=== PATIENT | male | born 1955 | race Caucasian/White ===

== ENCOUNTER 2017-06-08 01:43 | Inpatient (IN) | payer OTHER ==
--- NOTE | 2017-06-08 01:52 | PDOC ---
History of Present Illness - General Chief Complaint: Pain Stated Complaint: ABDOMINAL PAIN - History of Present Illness Initial Comments: 06/08/17 02:23 61-year-old M history of mood disorder presents with 4 weeks of epigastric pain that became suddenly worse tonight. The patient reports 2 hours prior to arrival he was awoken by 10 out of 10 sharp pain in his epigastric area. Associated with the pain was severe nausea at which point he ran to the bathroom and began to have some dry heaving, and felt as though he was going to pass out. Did not lose consiousness. This prompted him to present to the ED. He spoke with his primary doctor Dr. Arnold about this pain yesterday. Dr. Arnold recommended that he take Prilosec and Gas-X which he tried but it did not help. He has attempted to change his diet over the last few weeks to eat more healthy but that has not helped. He does not know that the pain gets worse before, after, or during eating. Had a normal bowel movement earlier today. Denies any chest pain or shortness of breath. Denies any fevers, chills. Had a history of an abdominal hernia repair in the epigastric area 10 years ago. Does not note any masses when his pain comes on. Denies dark or blood stools. Denies NSAID use. Denies recent unintentional weight loss. Meds: lexapro Allergies: PCN Social: no smoking, drug use, etoh use 1-2 times per week PMD: Dr. Arnold in [place] Past History - Past Medical History Allergies/Adverse Reactions: Allergies Allergy/AdvReac Type Severity Reaction Status Date / Time Penicillins Allergy Verified 03/11/13 07:43 Home Medications: Ambulatory Orders Escitalopram Oxalate [Lexapro -] 20 mg PO DAILY 03/11/13 - Psycho/Social/Smoking Cessation Hx Anxiety: No Suicidal Ideation: No Smoking Status: No Smoking History: Never smoked Number of Cigarettes Smoked Daily: 0 Review of Systems - Review of Systems Comments:: 06/08/17 02:28 GENERAL/CONSTITUTIONAL: No fever or chills. No weakness. HEAD, EYES, EARS, NOSE AND THROAT: No change in vision. No ear pain or discharge. No sore throat. GASTROINTESTINAL: +nausea, no vomiting, diarrhea or constipation. +epigastric abd pain. GENITOURINARY: No dysuria, frequency, or change in urination. CARDIOVASCULAR: No chest pain or shortness of breath. RESPIRATORY: No cough, wheezing, or hemoptysis. MUSCULOSKELETAL: No joint or muscle swelling or pain. No neck or back pain. SKIN: No rash NEUROLOGIC: No headache, vertigo, loss of consciousness, or change in strength/ sensation. ENDOCRINE: No increased thirst. No abnormal weight change. HEMATOLOGIC/LYMPHATIC: No anemia, easy bleeding, or history of blood clots. ALLERGIC/IMMUNOLOGIC: No hives or skin allergy. *Physical Exam - Physical Exam Comments: 06/08/17 02:29 GENERAL: Awake, alert, and fully oriented, in no acute distress HEAD: No signs of trauma EYES: PERRLA, EOMI, sclera anicteric, conjunctiva clear ENT: Auricles normal inspection, hearing grossly normal, nares patent, oropharynx clear without exudates. Moist mucosa NECK: Normal ROM, supple, no lymphadenopathy, JVD, or masses LUNGS: Breath sounds equal, clear to auscultation bilaterally. No wheezes, and no crackles HEART: Regular rate and rhythm, normal S1 and S2, no murmurs, rubs or gallops ABDOMEN: +epigastric ttp. Soft, normoactive bowel sounds. No guarding, no rebound. Pulsatile mass in epigastric area. +mild distention. No CVAT. EXTREMITIES: Normal range of motion, no edema. No clubbing or cyanosis. No cords, erythema, or tenderness NEUROLOGICAL: Normal speech, cranial nerves intact, negative pronator drift, 5/ 5 strength in all 4 extremities, normal sensation to light touch in all 4 extremities, normal cerebellar exam, normal gait, normal reflexes and tone SKIN: Warm, Dry, normal turgor, no rashes or lesions noted. ED Treatment Course - LABORATORY CBC & Chemistry Diagram: 06/08/17 02:25 06/08/17 02:25 Medical Decision Making - Medical Decision Making 06/08/17 02:31 61-year-old male history of mood disorder presents with progressive epigastric pain increasing in severity tonight. Vitals unremarkable. Exam with no tenderness to palpation but mild distention and pulsatile mass in the epigastric area. Differential is wide and includes but is not limited to abdominal aortic aneurysm versus biliary colic versus cholecystitis versus pancreatitis versus peptic ulcer disease versus gastritis. -labs -abd US -IV pepcid -UA -reassess Laboratory Last Values WBC 8.7 K/mm3 (4.0-10.0) 06/08/17 02:25 RBC 5.22 M/mm3 (4.00-5.60) 06/08/17 02:25 Hgb 15.0 GM/dL (11.7-16.9) 06/08/17 02:25 Hct 43.5 % (35.4-49) 06/08/17 02:25 MCV 83.4 fl (80-96) 06/08/17 02:25 MCH 28.7 pg (25.7-33.7) 06/08/17 02:25 MCHC 34.4 g/dl (32.0-35.9) 06/08/17 02:25 RDW 12.9 % (11.9-15.9) 06/08/17 02:25 Plt Count 203 K/MM3 (134-434) 06/08/17 02:25 MPV 8.6 fl (7.5-11.1) 06/08/17 02:25 Neutrophils % 71.1 % (42.8-82.8) 06/08/17 02:25 Lymphocytes % 16.6 % (8-40) 06/08/17 02:25 Monocytes % 5.5 % (3.8-10.2) 06/08/17 02:25 Eosinophils % 6.6 % (0-4.5) H 06/08/17 02:25 Basophils % 0.2 % (0-2.0) 06/08/17 02:25 Sodium 142 mmol/L (136-145) 06/08/17 02:25 Potassium 4.2 mmol/L (3.5-5.1) 06/08/17 02:25 Chloride 106 mmol/L (98-107) 06/08/17 02:25 Carbon Dioxide 28 mmol/L (21-32) 06/08/17 02:25 Anion Gap 8 (8-16) 06/08/17 02:25 BUN 22 mg/dL (7-18) H 06/08/17 02:25 Creatinine 1.1 mg/dL (0.7-1.3) 06/08/17 02:25 Creat Clearance w eGFR > 60 (>60) 06/08/17 02:25 Random Glucose 98 mg/dL (74-106) 06/08/17 02:25 Calcium 8.7 mg/dL (8.5-10.1) 06/08/17 02:25 Magnesium 1.9 mg/dL (1.8-2.4) 06/08/17 02:25 Total Bilirubin 0.6 mg/dL (0.2-1.0) 06/08/17 02:25 AST 14 U/L (15-37) L 06/08/17 02:25 ALT 17 U/L (12-78) 06/08/17 02:25 Alkaline Phosphatase 57 U/L (45-117) 06/08/17 02:25 Creatine Kinase 115 IU/L (39-308) 06/08/17 02:25 Troponin I < 0.02 ng/ml (0.00-0.05) 06/08/17 02:25 Total Protein 6.3 g/dl (6.4-8.2) L 06/08/17 02:25 Albumin 3.7 g/dl (3.4-5.0) 06/08/17 02:25 Lipase 1364 U/L (73-393) H 06/08/17 02:25 Urine Color Ltyellow 06/08/17 02:35 Urine Appearance Clear 06/08/17 02:35 Urine pH 6.0 (5.0-8.0) 06/08/17 02:35 Urine Protein Negative (NEGATIVE) 06/08/17 02:35 Urine Glucose (UA) 3+ (NEGATIVE) H 06/08/17 02:35 Urine Ketones Negative (NEGATIVE) 06/08/17 02:35 Urine Blood Negative (NEGATIVE) 06/08/17 02:35 Urine Nitrite Negative (NEGATIVE) 06/08/17 02:35 Urine Bilirubin Negative (NEGATIVE) 06/08/17 02:35 Urine Urobilinogen Negative mg/dL (0.2-1.0) 06/08/17 02:35 06/08/17 05:41 US negative for AAA. Gallbladder with sludge, otherwise no other findings. Lipase 1364 consistent with acute pancreatitis, possible 2/2 GB sludge. Fluids ordered, pt kept NPO and to be admitted to Dr. Hurt for further management. *DC/Admit/Observation/Transfer Diagnosis at time of Disposition: Pancreatitis Qualifiers: Chronicity: acute Pancreatitis type: unspecified pancreatitis type Acute pancreatitis complication: unspecified Qualified Code(s): K85.90 - Acute pancreatitis without necrosis or infection, unspecified - Discharge Dispostion Condition at time of disposition: Stable Admit: Yes - Referrals Referrals: STAFF,NOT ON [Primary Care Provider] - - Attestations Physician Attestion: 06/08/17 04:43 I, Dr. Jaylen Ram MD, attest that this document has been prepared under my direction and personally reviewed by me in its entirety. I further attest, that it accurately reflects all work, treatment, procedures and medical decision -making performed by me.
[2017-06-08] MEDS ORDERED: FAMOTIDINE 20 MG/50 ML IVPB 50 ML IVPB ONE (02:08)
[2017-06-08 02:57] LABS: BASOPHIL 0.2 % (0-2.0); EOSINOPHIL 6.6 % (0-4.5); MCH 28.7 pg (25.7-33.7); MCHC 34.4 g/dl (32.0-35.9); MEAN CELL VOLUME 83.4 fl (80-96); MEAN PLT VOLUME 8.6 fl (7.5-11.1); NEUTROPHILS 71.1 % (42.8-82.8); PLATELET COUNT 203 K/MM3 (134-434); RDW 12.9 % (11.9-15.9); WHITE BLOOD COUNT 8.7 K/mm3 (4.0-10.0)
[2017-06-08 03:02] LABS: URINE APPEARANCE CLEAR; URINE BILIRUBIN NEGATIVE (NEGATIVE); URINE BLOOD NEGATIVE (NEGATIVE); URINE COLOR LTYELLOW; URINE GLUCOSE (UA) 3+ (NEGATIVE); URINE KETONE NEGATIVE (NEGATIVE); URINE LEUK ESTERASE NEGATIVE (NEGATIVE); URINE NITRITE NEGATIVE (NEGATIVE); URINE PROTEIN NEGATIVE (NEGATIVE); URINE UROBILINOGEN NEGATIVE mg/dL (0.2-1.0)
[2017-06-08 03:24] LABS: ALBUMIN 3.7 g/dl (3.4-5.0); ANION GAP 8 (8-16); CALCIUM 8.7 mg/dL (8.5-10.1); CO2 28 mmol/L (21-32); CREATININE 1.1 mg/dL (0.7-1.3); GLUCOSE,RANDOM 98 mg/dL (74-106); MAGNESIUM 1.9 mg/dL (1.8-2.4); SGOT/AST 14 U/L (15-37); SGPT/ALT 17 U/L (12-78)
[2017-06-08 03:27] LABS: ALK PHOS 57 U/L (45-117); BILIRUBIN,TOTAL 0.6 mg/dL (0.2-1.0); CPK 115 IU/L (39-308); TOT PROT 6.3 g/dl (6.4-8.2)
[2017-06-08 04:01] LABS: TROPONIN I < 0.02 ng/ml (0.00-0.05)
[2017-06-08] MEDS ORDERED: SODIUM CHLORIDE 0.9% 500 ML INFUS.BAG IV ONE (04:24)
[2017-06-08] MEDS ORDERED: ONDANSETRON 4 MG/2 ML VIAL IVPB PRN (05:43)
[2017-06-08] MEDS ORDERED: morphine CARPU-JECT 2 MG/1 ML DISP.SYRIN IVPUSH PRN (05:43)
[2017-06-08 06:29] VITALS: BMI 22.9
[2017-06-08] MEDS: SODIUM CHLORIDE 1,000 ML IV SCH ×2 (07:37→15:22)
[2017-06-08] MEDS ORDERED: ACETAMINOPHEN 1000 MG/100 ML VIAL (NON FORMULARY) IVPB PRN (09:45)
--- NOTE | 2017-06-08 09:48 | HP ---
CHIEF COMPLAINT: Abdominal pain for 3 weeks PCP: Dr. Porras in [place] Cousin is a GI physician HISTORY OF PRESENT ILLNESS: Pt presented to ER on 06/08/17 with a complaint of abdominal pain for 3 weeks that had not resolved with OTC antacids. He denies fever, vomiting, diarrhea, recent travel, ETOH use (glass of wine daily ~ none all week). ER course was notable for: (1) labs with elevated lipase noted (2) abdominal u/s neg findings. (3) Recent Travel: denies PAST MEDICAL HISTORY: Mood disorder on lexapro PAST SURGICAL HISTORY: abdominal hernia repair 2013? Social History: Smoking:denies Alcohol:daily one glass of wine Drugs: denies Family History: Allergies Penicillins Allergy (Verified 03/11/13 07:43) HOME MEDICATIONS: Home Medications Medication Instructions Recorded Escitalopram Oxalate [Lexapro -] 20 mg PO DAILY 03/11/13 REVIEW OF SYSTEMS CONSTITUTIONAL: Absent: fever, chills, diaphoresis, generalized weakness, malaise, loss of appetite, weight change HEENT: Absent: rhinorrhea, nasal congestion, throat pain, throat swelling, difficulty swallowing, mouth swelling, ear pain, eye pain, visual changes CARDIOVASCULAR: Absent: chest pain, syncope, palpitations, irregular heart rate, lightheadedness , peripheral edema RESPIRATORY: Absent: cough, shortness of breath, dyspnea with exertion, orthopnea, wheezing, stridor, hemoptysis GASTROINTESTINAL: Absent:+ abdominal pain, -abdominal distension,+ nausea, -vomiting, -diarrhea, - constipation, melena, hematochezia, last BM yesterday GENITOURINARY: Absent: dysuria, frequency, urgency, hesitancy, hematuria, flank pain, genital pain MUSCULOSKELETAL: Absent: myalgia, arthralgia, joint swelling, back pain, neck pain SKIN: Absent: rash, itching, pallor HEMATOLOGIC/IMMUNOLOGIC: Absent: easy bleeding, easy bruising, lymphadenopathy, frequent infections ENDOCRINE: Absent: unexplained weight gain, unexplained weight loss, heat intolerance, cold intolerance NEUROLOGIC: Absent: headache, focal weakness or paresthesias, dizziness, unsteady gait, seizure, mental status changes, bladder or bowel incontinence PSYCHIATRIC: Absent: anxiety, depression, suicidal or homicidal ideation, hallucinations. PHYSICAL EXAMINATION Vital Signs - 24 hr 06/08/17 06/08/17 06:03 09:00 Temperature 98.2 F Pulse Rate 55 L Respiratory 16 16 Rate Blood Pressure 112/65 O2 Sat by Pulse 97 97 Oximetry (%) GENERAL: Awake, alert, and fully oriented, in no acute distress. HEAD: Normal with no signs of trauma. EYES: Pupils equal, round and reactive to light, extraocular movements intact, sclera anicteric, conjunctiva clear. No lid lag. EARS, NOSE, THROAT: Ears normal, nares patent, oropharynx clear without exudates. Moist mucous membranes. NECK: Normal range of motion, supple without lymphadenopathy, JVD, or masses. LUNGS: Breath sounds equal, clear to auscultation bilaterally. No wheezes, and no crackles. No accessory muscle use. HEART: Regular rate and rhythm, normal S1 and S2 without murmur, rub or gallop. ABDOMEN: Soft, nontender, not distended, normoactive bowel sounds, no guarding, no rebound, no masses. No hepatomegaly or splenomegaly. MUSCULOSKELETAL: Normal range of motion at all joints. No bony deformities or tenderness. No CVA tenderness. UPPER EXTREMITIES: 2+ pulses, warm, well-perfused. No cyanosis. No clubbing. No peripheral edema. LOWER EXTREMITIES: 2+ pulses, warm, well-perfused. No calf tenderness. No peripheral edema. NEUROLOGICAL: Cranial nerves II-XII intact. Normal speech. Normal gait. PSYCHIATRIC: Cooperative. Good eye contact. Appropriate mood and affect. SKIN: Warm, dry, normal turgor, no rashes or lesions noted, normal capillary refill. ASSESSMENT/PLAN: Problem List - Problem (1) Pancreatitis Assessment/Plan: -acute admission for elevated lipase and abdominal pain suggestive of pancreatitis -trend LFT, no elevated WBC -GI consult Dr. Grissom requested -NPO with IVF and fingersticks -pepcid IV ordered -zofran for nausea/vomiting -reviewed u/s from ER -no leukocytosis or fever, holding off on ABT currently Dispo: Inpt required for suggestive pancreatitis, IVF for hydration and pt NPO until seen by GI consult. Code(s): K85.90 - ACUTE PANCREATITIS WITHOUT NECROSIS OR INFECTION, UNSP Qualifiers: Qualified Code(s): K85.90 - Acute pancreatitis without necrosis or infection, unspecified Visit type - Emergency Visit Emergency Visit: Yes ED Registration Date: 06/08/17 Care time: The patient presented to the Emergency Department on the above date and was hospitalized for further evaluation of their emergent condition. - New Patient This patient is new to me today: Yes Date on this admission: 06/08/17 - Critical Care Critical Care patient: No
[2017-06-08] MEDS: FAMOTIDINE 20 MG/50 ML IVPB 50 ML IVPB SCH ×2 (10:38→21:19)
[2017-06-08] MEDS: ESCITALOPRAM OXALATE 20 MG TABLET (FP) PO SCH (10:38)
[2017-06-09 06:25] VITALS: PULSE 54
[2017-06-09 08:19] LABS: BASOPHIL 0.1 % (0-2.0); EOSINOPHIL 11.9 % (0-4.5); MCH 28.4 pg (25.7-33.7); MEAN CELL VOLUME 83.6 fl (80-96); MEAN PLT VOLUME 8.7 fl (7.5-11.1); NEUTROPHILS 59.8 % (42.8-82.8); PLATELET COUNT 175 K/MM3 (134-434); RDW 11.9 % (11.9-15.9); WHITE BLOOD COUNT 5.2 K/mm3 (4.0-10.8)
--- NOTE | 2017-06-09 08:43 | PN ---
Progress Note (short form) - Note Progress Note: Patient seen and chart/labs reviewed with consult dictated. Patient with 2-3 weeks of mild upper abdominal discomfort and admission yesterday am with increased pain in the epigastrium. No associated N/V/fever and no prior similar hx. Labs notable for elevated serum lipase with normal LFTs and normal WBC. Repeat labs including amylase pending. Sonogram shows normal GB and biliary tract. Patient feels much better this am (pain 1 out of 10). Appears to have had episode of acute pancreatitis ?etiology. No stones seen on sono, none/rare ETOH user, no hx of elevated TG, only med Lexapro and no hx of prior pancreatitis Cannot r/o passage of a stone/sludge and await labs this am. If improved, can begin on PO liquids and consider for d/c with outpatient MRCP ( or possibly EUS).
--- NOTE | 2017-06-09 08:55 | PN ---
Physical Exam: SUBJECTIVE: Patient seen and examined, reports feeling well, denies any abdominal pain, nausea or vomiting. OBJECTIVE: patient is a 61 y/o male with a past medical history of depression. patient was admitted from the emergency department for acute pancreatitis. Vital Signs Period Temp Pulse Resp BP Sys/Arroyo Pulse Ox Last 24 Hr 98.4 F-98.8 F 54-60 16-18 109-123/60-69 97-99 GENERAL: The patient is awake, alert, and fully oriented, in no acute distress. HEAD: Normal with no signs of trauma. EYES: PERRL, extraocular movements intact, sclera anicteric, conjunctiva clear. No ptosis. ENT: Ears normal, nares patent, oropharynx clear without exudates, moist mucous membranes. NECK: Trachea midline, full range of motion, supple. LUNGS: Breath sounds equal, clear to auscultation bilaterally, no wheezes, no crackles, no accessory muscle use. HEART: Regular rate and rhythm, S1, S2 without murmur, rub or gallop. ABDOMEN: Soft, nontender, nondistended, normoactive bowel sounds, no guarding, no rebound, no hepatosplenomegaly, no masses. EXTREMITIES: 2+ pulses, warm, well-perfused, no edema. NEUROLOGICAL: Cranial nerves II through XII grossly intact. Normal speech, gait not observed. PSYCH: Normal mood, normal affect. SKIN: Warm, dry, normal turgor, no rashes or lesions noted Laboratory Results - last 24 hr 06/08/17 06/08/17 06/08/17 17:08 18:45 20:59 POC Glucometer 77 85 Total Amylase 58 Active Medications Generic Name Dose Route Start Last Admin Trade Name Freq PRN Reason Stop Dose Admin Escitalopram Oxalate 20 mg 06/08/17 10:00 06/08/17 10:38 Lexapro - PO 20 mg DAILY HEATHER Administration Sodium Chloride 1,000 mls @ 200 mls/hr 06/08/17 06:00 06/08/17 15:22 Normal Saline - IV 06/10/17 10:59 200 mls/hr ASDIR HEATHER Administration Famotidine/Sodium Chloride 50 mls @ 100 mls/hr 06/08/17 10:00 06/08/17 21:19 Pepcid 20 Mg Premixed Ivpb - IVPB 100 mls/hr BID HEATHER Administration Ondansetron HCl 4 mg 06/08/17 05:43 Zofran Injection IVPB Q6H PRN NAUSEA IMAGING ultrasound of abdomen: gallbladder is normal in size, no pancreatic masses noted as per radiologist, Dr Contreras ASSESSMENT/PLAN: 1) pancreatitis - trend lipase, pending am labs - no transanimitis, no leukocytosis noted - Dr Grissom, GI consulted and followed 2) depression - continue lexapro home dose f/e/n - npo-->ivf - replete lytes prn ppx - pepcid - oob dispo: requires inpatient admission. Visit type - Emergency Visit Emergency Visit: Yes ED Registration Date: 06/08/17 Care time: The patient presented to the Emergency Department on the above date and was hospitalized for further evaluation of their emergent condition. - New Patient This patient is new to me today: Yes Date on this admission: 06/09/17 - Critical Care Critical Care patient: No - Discharge Referral Referred to [facility] Med P.C.: No
[2017-06-09 09:22] LABS: ALBUMIN 3.7 g/dl (3.5-5.0); ALK PHOS 48 U/L (32-92); ANION GAP 7 (8-16); BILIRUBIN,TOTAL 1.4 mg/dl (0.2-1.0); CALCIUM 8.4 mg/dl (8.4-10.2); CO2 24 mmol/L (22-28); CREATININE 0.9 mg/dl (0.6-1.3); GLUCOSE,RANDOM 74 mg/dl (74-106); MAGNESIUM 1.8 mg/dL (1.8-2.4); PHOSPHOROUS 3.1 mg/dl (2.5-4.6); SGOT/AST 16 U/L (10-42); SGPT/ALT 11 U/L (10-40); TOT PROT 5.6 g/dl (6.4-8.3)
[2017-06-09 09:23] LABS: ALBUMIN 3.7 g/dl (3.5-5.0); BILIRUBIN,TOTAL 1.4 mg/dl (0.2-1.0); TOT PROT 5.6 g/dl (6.4-8.3)
[2017-06-09] MEDS: FAMOTIDINE 20 MG/50 ML IVPB 50 ML IVPB SCH (09:25)
[2017-06-09] MEDS: ESCITALOPRAM OXALATE 20 MG TABLET (FP) PO SCH (09:25)
[2017-06-09 09:49] LABS: BILIRUBIN,DIRECT 0.2 mg/dl (0.0-0.2)
--- NOTE | 2017-06-09 10:12 | PN ---
Progress Note (short form) - Note Progress Note: Repeat lipase =21 and Serum amylase levels from yesterday and today normal (and LFTs normal). Unclear if patient had episode of pancreatitis or initial lipase level was erroneous. Can advance diet and if tolerated, discharge home today with outpatient followup by his GI physician at [place].
[2017-06-09] MEDS ORDERED: SODIUM CHLORIDE 1,000 ML IV SCH (10:16)
[2017-06-09 10:46] LABS: CHOLESTEROL 164 mg/dl
--- NOTE | 2017-06-09 13:42 | DS ---
Physical Exam: SUBJECTIVE: Patient seen and examined OBJECTIVE: Vital Signs Period Temp Pulse Resp BP Sys/Arroyo Pulse Ox Last 24 Hr 98.4 F-98.8 F 54-60 18-18 109-123/60-69 98-99 PHYSICAL EXAM GENERAL: The patient is awake, alert, and fully oriented, in no acute distress. HEAD: Normal with no signs of trauma. EYES: PERRL, extraocular movements intact, sclera anicteric, conjunctiva clear. ENT: Ears normal, nares patent, oropharynx clear without exudates, moist mucous membranes. NECK: Trachea midline, full range of motion, supple. LUNGS: Breath sounds equal, clear to auscultation bilaterally, no wheezes, no crackles, no accessory muscle use. HEART: Regular rate and rhythm, S1, S2 without murmur, rub or gallop. ABDOMEN: Soft, nontender, nondistended, normoactive bowel sounds, no guarding, no rebound, no hepatosplenomegaly, no masses. EXTREMITIES: 2+ pulses, warm, well-perfused, no edema. NEUROLOGICAL: Cranial nerves II through XII grossly intact. Normal speech, gait not observed. PSYCH: Normal mood, normal affect. SKIN: Warm, dry, normal turgor, no rashes or lesions noted. LABS Laboratory Results - last 24 hr 06/08/17 06/08/17 06/08/17 17:08 18:45 20:59 WBC RBC Hgb Hct MCV MCH MCHC RDW Plt Count MPV Neutrophils % Lymphocytes % Monocytes % Eosinophils % Basophils % Sodium Potassium Chloride Carbon Dioxide Anion Gap BUN Creatinine Creat Clearance w eGFR POC Glucometer 77 85 Random Glucose Calcium Phosphorus Magnesium Total Bilirubin Direct Bilirubin AST ALT Alkaline Phosphatase Total Protein Albumin Triglycerides Cholesterol Total LDL Cholesterol HDL Cholesterol Total Amylase 58 Lipase 06/09/17 06/09/17 06/09/17 07:00 07:00 07:00 WBC 5.2 RBC 4.82 Hgb 13.7 Hct 40.3 MCV 83.6 MCH 28.4 MCHC 34.0 RDW 11.9 Plt Count 175 MPV 8.7 Neutrophils % 59.8 Lymphocytes % 21.4 Monocytes % 6.8 Eosinophils % 11.9 H Basophils % 0.1 Sodium 137 Potassium 3.9 Chloride 106 Carbon Dioxide 24 Anion Gap 7 L BUN 13 Creatinine 0.9 Creat Clearance w eGFR > 60 POC Glucometer Random Glucose 74 Calcium 8.4 Phosphorus 3.1 Magnesium 1.8 Total Bilirubin 1.4 H 1.4 H Direct Bilirubin 0.2 AST 16 16 ALT 11 12 Alkaline Phosphatase 48 50 Total Protein 5.6 L 5.6 L Albumin 3.7 3.7 Triglycerides Cholesterol Total LDL Cholesterol HDL Cholesterol Total Amylase 51 Lipase 21 L 06/09/17 07:00 WBC RBC Hgb Hct MCV MCH MCHC RDW Plt Count MPV Neutrophils % Lymphocytes % Monocytes % Eosinophils % Basophils % Sodium Potassium Chloride Carbon Dioxide Anion Gap BUN Creatinine Creat Clearance w eGFR POC Glucometer Random Glucose Calcium Phosphorus Magnesium Total Bilirubin Direct Bilirubin AST ALT Alkaline Phosphatase Total Protein Albumin Triglycerides 59 Cholesterol 164 Total LDL Cholesterol 107 HDL Cholesterol 45 Total Amylase Lipase HOSPITAL COURSE: Date of Admission:06/08/17 Date of Discharge: 06/09/17 Minutes to complete discharge: 45 Discharge Summary Reason For Visit: PANREATITIS Current Active Problems Pancreatitis (Acute) Condition: Stable - Instructions Referrals: STAFF,NOT ON [Primary Care Provider] - - Home Medications Comprehensive Discharge Medication List: Ambulatory Orders RX: Escitalopram Oxalate [Lexapro -] 20 mg PO DAILY 03/11/13 This patient is new to me today: Yes Date on this admission: 06/09/17 Emergency Visit: Yes ED Registration Date: 06/08/17 Care time: The patient presented to the Emergency Department on the above date and was hospitalized for further evaluation of their emergent condition. Critical Care patient: No - Discharge Referral Referred to [facility] Med P.C.: No
[2017-06-09 14:24] VITALS: BP 103/66; TEMP 98.5
--- NOTE | 2017-06-10 09:31 | CONS ---
DATE OF CONSULTATION: 06/09/2017 REASON FOR CONSULTATION: I was asked to evaluate this 61-year-old gentleman admitted with abdominal pain and an elevated serum lipase level. HISTORY OF PRESENT ILLNESS: The patient is a 61-year-old gentleman with a history of epigastric discomfort over a 2-3 week period, which was mild. He was admitted with a 1-day history of increased pain, which he described as a 10 out of 10 in terms of pain scale. In the emergency room, he was evaluated and noted to have a markedly elevated serum lipase. His liver chemistries were unremarkable, and a sonogram of the upper abdomen showed no evidence of gallstones, biliary ductal dilatation, or other pathology. SOCIAL HISTORY: He is a rare alcohol user, a nonsmoker, and denies any drug use. MEDICATIONS: He does take Lexapro for depression. PAST SURGICAL HISTORY: He states has had both upper endoscopy and colonoscopy in the past and is followed by a customer service agent at [facility]. He has had no abdominal trauma, no abdominal surgery. PHYSICAL EXAMINATION: General: On examination, he is a well-developed, well-nourished gentleman, lying in bed comfortably. He describes his pain level now as 1 out of 10 and is hungry. He has no nausea, vomiting, or fever. He has had no prior history of pancreatitis, hypertriglyceridemia. Lungs: Clear. Cardiac: Regular rate and rhythm. . Abdomen: Soft, flat, and nontender. There is no palpable mass or hepatosplenomegaly. LABORATORY TESTS: Today include a normal white count of 5.2, hemoglobin of 13.7. His chemistries are notable for normal electrolytes, BUN of 13, creatinine 0.9, with normal liver chemistries. His serum amylase level 51 and lipase level today 21. IMPRESSION: Patient with recent abdominal pain of unclear etiology had a markedly elevated serum lipase yesterday of 13.64, which today is 21. His amylase levels were normal yesterday at 58 and today at 51, with normal liver chemistries. As mentioned, his sonogram showed no evidence of gallstones or biliary ductal abnormalities. The pancreas appeared normal, as well. It is entirely possible that the patient had a spurious elevation of a serum lipase in the setting of epigastric pain. Alternatively, he may have had an episode of pancreatitis, although this is not supported by the serum amylase level nor the rapid drop in his serum lipase level. The sonogram is normal, as well. Presently, he is asymptomatic and will be started on a diet. Outpatient followup can be considered including an MRCP and possibly endoscopic ultrasound especially if his symptoms recur. Will follow expectantly for the time being with plans for discharge later today. HARSHA FONTAINE M.D. [id number]
== END 2017-06-09 14:10 | disposition home or self-care (01) | DRG 440 ==
LOC: FER 01:43 → FM/S 05:42
PROVIDERS: ADMIT Internal Medicine; ATTEND Nurse Practitioner Family
DX: K85.90 Acute pancreatitis without necrosis or infection, unspecified (principal); F39 Unspecified mood [affective] disorder; F32.9 Major depressive disorder, single episode, unspecified; K46.9 Unspecified abdominal hernia without obstruction or gangrene
CPT/HCPCS: 36415; 76705-TC; 80053; 80061; 80076; 80307; 81003; 82150; 83690; 83735; 84100; 84478; 84484; 85025; 99282-25

== ENCOUNTER 2022-09-22 08:25 | Emergency (ER) | payer OTHER, MEDICARE ==
[2022-09-22 08:57] VITALS: BP 102/69; PULSE 65; TEMP 98.8; BMI 22.1
== END 2022-09-22 09:55 | disposition home or self-care (01) ==
LOC: FER 08:25
DX: J02.9 Acute pharyngitis, unspecified (principal)
CPT/HCPCS: 87651; 99283-25